=== PATIENT | female | born 1930 | race Caucasian/White ===

== ENCOUNTER 2017-06-11 10:40 | Emergency (ER) | payer OTHER, MEDICAID ==
[~2017-06-11] VITALS: Ht 160 cm; Wt 69.9 kg
[2017-06-11 10:40] VITALS: BP_SYST 146
[2017-06-11] MEDS ORDERED: LORazepam 1 MG TABLET PO ONE (11:30)
[2017-06-11] MEDS ORDERED: IBUPROFEN 400 MG TABLET PO ONE (11:30)
[2017-06-11 13:15] VITALS: BP_SYST 174
== END 2017-06-11 13:14 | disposition home or self-care (01) ==
LOC: SED 10:40
DX: F41.9 Anxiety disorder, unspecified (principal); J44.9 Chronic obstructive pulmonary disease, unspecified; I10 Essential (primary) hypertension; E78.00 Pure hypercholesterolemia, unspecified
CPT/HCPCS: 71010; 93005; 99284